=== PATIENT | male | born 1965 | race Caucasian/White ===

== ENCOUNTER 2020-06-30 05:37 | Day surgery (SDC) | payer BC ==
[2020-06-30] MEDS ORDERED: MAGNESIUM SULFATE INJ 1 GM/2 ML VIAL ONE (07:00)
[2020-06-30] MEDS ORDERED: LIDOCAINE 1% 10 ML VIAL INJ ONE (07:00)
[2020-06-30] MEDS ORDERED: PROPOFOL 200 MG/20 ML VIAL IV ONE (07:00)
[2020-06-30] MEDS ORDERED: LACTATED RINGERS 1,000 ML ONE (07:14)
[2020-06-30] MEDS ORDERED: MIDAZOLAM INJ 2 MG/2 ML VIAL ONE (08:07)
[2020-06-30] MEDS ORDERED: KETAMINE HCL 100 MG/ML VIAL ONE (08:07)
[2020-06-30] MEDS ORDERED: fentaNYL CITRATE INJ 50 MCG/ML 2 ML AMP ONE (08:07)
--- NOTE | 2020-06-30 10:04 | OP ---
DATE OF PROCEDURE: 06/30/20 PREOPERATIVE DIAGNOSIS: 1. Screening colonoscopy. 2. Gastroesophageal reflux disease. POSTOPERATIVE DIAGNOSIS: 1. Possible gastritis. 2. Colonic polyp near hepatic flexure, 1.7 mm. PROCEDURE: 1. EGD with biopsy of antrum and biopsy of gastric fundus. 2. Colonoscopy with polyp forceps excision. SURGEON: Rod Julien MD ANESTHESIA: General. FINDINGS: As described. PROCEDURE: General anesthesia was induced. Bite block was in place. The endoscope was passed without difficulty to the second portion of the duodenum. Upon withdrawal, there was no evidence of duodenal inflammation or ulcers. There was slight red streaking at the pylorus. Photos were taken, but ultimately did not print. The suspicious area was biopsied. On retroflexion, the mucosal surfaces appeared normal. There was no evidence of hiatal hernia, but upon withdrawal, a reddened area with slight ooze, no actual raised lesion or ulcer, but some suspicious looking mucosa. It could have been a rub, but biopsies were taken. Upon withdrawal, the GE junction looked normal, as did the esophagus with slight hypermotility. That was concluded and the patient was repositioned. Digital rectal exam was normal. The colonoscope was inserted and passed all the way to the cecum as identified by the appendiceal orifice and ileocecal valve. Upon withdrawal, it was an adequate prep. The mucosal surfaces appeared normal without inflammation. There was one single 1.7 mm polyp right about the hepatic flexure and the remainder of the colon was normal. The patient tolerated the procedure and was awakened and taken to Recovery to be discharged. He will followup in about a week for pathology results. #[id number] cc: [facility]
[2020-06-30 13:49] VITALS: BP 163/88; TEMP 98; O2SAT 95
== END 2020-06-30 10:40 | disposition home or self-care (01) ==
LOC: AMB 05:37
PROVIDERS: ATTEND Surgery
DX: Z12.11 Encounter for screening for malignant neoplasm of colon (principal); D12.3 Benign neoplasm of transverse colon; K31.89 Other diseases of stomach and duodenum; K21.9 Gastro-esophageal reflux disease without esophagitis; I10 Essential (primary) hypertension; Z91.040 Latex allergy status; Z79.899 Other long term (current) drug therapy
CPT/HCPCS: 00813; 43239; 45380; J2250; J3010; J3475; J3490; J7120